=== PATIENT | male | born 1945 | race Asian ===

== ENCOUNTER → 2024-08-19 | Outpatient (CLI) | payer MEDICARE, MEDICAID, SELFPAY ==
--- NOTE | 2024-08-19 09:51 | XR_ITS ---
Examination: PA lateral chest 2 views TECHNIQUE: Upright PA lateral chest 2 views August 19, 2024 [id number] hours Comparison December 31, 2014 INDICATIONS: Wheezing shortness of breath beginning 2 weeks ago. 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
[2024-08-19 12:04] LABS: Alanine Aminotransferase 12 U/L (10-49); Albumin, Serum 3.6 gm/dL (3.4-4.8); Albumin/Globulin Ratio 1.1 (1.2-2.2); Alkaline Phosphatase 66 U/L (46-116); Anion Gap 10 (7-16); Aspartate Amino Transferase 18 U/L (0-34); BUN/Creatinine Ratio 12 Ratio (12-20); Bilirubin,Total 0.8 mg/dL (0.3-1.2); Blood Urea Nitrogen 29 mg/dL (9-23); Calcium 8.9 mg/dL (8.3-10.6); Calcium (Corrected) 9.2 mg/dL (8.5-10.1); Carbon Dioxide 25.5 mMol/L (20.0-31.0); Chloride 99 mMol/L (98-107); Creatinine (Component) 2.5 mg/dL (0.6-1.3); Globulin 3.3 gm/dL (2.3-3.5); Glucose 123 mg/dL (74-106); Osmolality,Calculated 275 (275-295); Potassium 4.0 mMol/L (3.4-5.1); Sodium 134 mMol/L (136-145); Thyroid Stimulating Hormone 0.06 uIU/mL (0.55-4.78); Total Protein 6.9 gm/dL (5.7-8.2); eGFR 26 See Note
[2024-08-19 12:05] LABS: B-Type Natriuretic Peptide 70 pg/mL (0-100)
== END | disposition home or self-care (01) ==
LOC: CDIM 09:44 → COPL 10:03
PROVIDERS: PCP Physician Assistant; Referring Provider Physician Assistant; Visit Provider Radiology Diagnostic Radiology
DX: R06.02 Shortness of breath (principal); R53.83 Other fatigue
CPT/HCPCS: 36415; 71046; 80053; 83880; 84443